=== PATIENT | male | born 1965 | race Caucasian/White ===

== ENCOUNTER 2023-05-11 22:39 | Inpatient (IN) | payer OTHER ==
[2023-05-11 23:15] VITALS: BMI 27.2
[2023-05-11] MEDS ORDERED: LOPERAMIDE HCL 2 MG CAPSULE PO PRN (23:57)
[2023-05-11] MEDS ORDERED: MAGNESIUM HYDROX 2400MG/30ML ORAL SUSPENSION 30 ML CUP PO PRN (23:57)
[2023-05-11] MEDS ORDERED: guaiFENesin 600 MG TABLET.ER (FP) PO PRN (23:57)
[2023-05-11] MEDS ORDERED: BENZONATATE 200 MG CAPSULE PO PRN (23:57)
[2023-05-11] MEDS ORDERED: POLYETHYLENE GLYCOL (HEALTHYLAX) 3350 17 GM PACKET PO PRN (23:57)
[2023-05-11] MEDS ORDERED: DICYCLOMINE HCL 10 MG CAPSULE PO PRN (23:57)
[2023-05-11] MEDS ORDERED: NALOXONE HCL 0.4 MG/ML VIAL IM PRN (23:57)
[2023-05-11] MEDS ORDERED: BISMUTH SUBSALICYLATE 524 MG/30 ML PO PRN (23:57)
[2023-05-11] MEDS ORDERED: IBUPROFEN 600 MG TABLET (FP) PO PRN (23:57)
[2023-05-11] MEDS ORDERED: ONDANSETRON *ODT* 4 MG TABLET SL PRN (23:57)
[2023-05-11] MEDS ORDERED: NALOXONE HCL (KLOXXADO) 8 MG SPRAY NS PRN (23:57)
[2023-05-11] MEDS ORDERED: IBUPROFEN 400 MG TABLET (FP) PO PRN (23:57)
[2023-05-11] MEDS ORDERED: NICOTINE POLACRILEX 2 MG GUM BUC PRN (23:57)
[2023-05-11] MEDS ORDERED: BENZOCAINE/MENTHOL (CHLORASEPTIC ) LOZENGE MM PRN (23:57)
[2023-05-11] MEDS ORDERED: ACETAMINOPHEN 325 MG TABLET (FP) PO PRN (23:57)
[2023-05-11] MEDS ORDERED: MAG HYDROX/AL HYDROX/SIMETH 30 ML UNIT-DOSE CUP PO PRN (23:57)
[2023-05-11] MEDS ORDERED: METHOCARBAMOL 500 MG TABLET PO PRN (23:57)
[2023-05-12] MEDS ORDERED: ALBUTEROL SO4 2.5/IPRATROPIUM 0.5 INH SOL 3 ML VIAL.NEB. NEB ONE (08:30)
[2023-05-12] MEDS ORDERED: predniSONE 20 MG TABLET (UD) PO ONE (08:45)
[2023-05-12] MEDS ORDERED: LORazepam 1 MG TABLET PO PRN (08:57)
[2023-05-12 09:26] VITALS: BP 119/68; PULSE 104; RESP 18; TEMP 97.8
[2023-05-12] MEDS ORDERED: PRENATAL VITAMINS W/ FOLIC ACID TABLET (FP) PO SCH (10:00)
[2023-05-12] MEDS ORDERED: NICOTINE 21 MG/24 HOURS TOPICAL PATCH TD SCH (10:00)
[2023-05-12] MEDS ORDERED: LORazepam 2 MG TABLET PO SCH (11:00)
[2023-05-12 11:01] LABS: HEMATOCRIT 39.5 % (35.4-49); HEMOGLOBIN 13.1 GM/dL (11.7-16.9); MCH 35.1 pg (25.7-33.7); MCHC 33.1 g/dl (32.0-35.9); MEAN PLT VOLUME 7.5 fl (7.5-11.1); PLATELET COUNT 185 10^3/uL (134-434); RBC 3.73 M/mm3 (4.00-5.60); RDW 15.1 % (11.9-15.9); WHITE BLOOD COUNT 4.8 K/mm3 (4.0-10.0)
[2023-05-12 11:08] LABS: CALCIUM 7.3 mg/dL (8.5-10.1)
[2023-05-12 11:09] LABS: ALBUMIN 2.9 g/dl (3.4-5.0); BLOOD UREA NITROGEN 5.6 mg/dL (7-18)
[2023-05-12 11:11] LABS: CREATININE 0.5 mg/dL (0.55-1.3)
[2023-05-12 11:13] LABS: BILIRUBIN,TOTAL 0.3 mg/dL (0.2-1); TOT PROT 5.6 g/dl (6.4-8.2)
[2023-05-12] MEDS ORDERED: ALBUTEROL SO4 2.5/IPRATROPIUM 0.5 INH SOL 3 ML VIAL.NEB. NEB SCH (20:00)
[2023-05-12] MEDS ORDERED: THIAMINE HCL 100 MG TABLET (FP) PO SCH (22:00)
[2023-05-12] MEDS ORDERED: MELATONIN 5 MG TABLETS PO SCH (22:00)
[2023-05-12] MEDS ORDERED: ATORVASTATIN CA 20 MG TABLET (FP) PO SCH (22:00)
[2023-05-13] MEDS ORDERED: predniSONE 20 MG TABLET (UD) PO SCH (10:00)
[2023-05-14] MEDS ORDERED: LORazepam 1 MG TABLET PO SCH (05:00)
[2023-05-15] MEDS ORDERED: LORazepam 0.5 MG TABLET PO PRN
[2023-05-15] MEDS ORDERED: LORazepam 0.5 MG TABLET PO SCH (05:00)
[2023-05-16] MEDS ORDERED: LORazepam 0.5 MG TABLET PO ONE (05:00)
== END 2023-05-12 16:07 | disposition left against medical advice (07) | DRG 894 ==
LOC: YASAS 22:39 → Y3N 23:46
PROVIDERS: ADMIT Allergy & Immunology; ATTEND Surgery
PROC: HZ2ZZZZ Detoxification Services for Substance Abuse Treatment (ICD-10-PCS; principal; 2023-05-11)
DX: F10.230 Alcohol dependence with withdrawal, uncomplicated (principal); C18.9 Malignant neoplasm of colon, unspecified; C78.00 Secondary malignant neoplasm of unspecified lung; F17.210 Nicotine dependence, cigarettes, uncomplicated; E78.5 Hyperlipidemia, unspecified; J44.9 Chronic obstructive pulmonary disease, unspecified
CPT/HCPCS: 36415; 80053; 85027; 86780; 87635; 94640

== ENCOUNTER 2023-05-12 12:12 | Emergency (ER) | payer OTHER ==
[2023-05-12 13:00] VITALS: BP 133/83; PULSE 92; RESP 18; TEMP 99; BMI 25.8
[2023-05-12 14:30] LABS: BASO % 0.6 % (0-2.0); EOS % 0.5 % (0-4.5); HEMATOCRIT 41.2 % (35.4-49); HEMOGLOBIN 13.7 GM/dL (11.7-16.9); LYMPH % 9.5 % (8-40); MCH 34.9 pg (25.7-33.7); MCHC 33.2 g/dl (32.0-35.9); MEAN CELL VOLUME 104.9 fl (80-96); MEAN PLT VOLUME 7.7 fl (7.5-11.1); MONO % 7.4 % (3.8-10.2); PLATELET COUNT 195 10^3/uL (134-434); RBC 3.93 M/mm3 (4.00-5.60); RDW 15.3 % (11.9-15.9); WHITE BLOOD COUNT 7.4 K/mm3 (4.0-10.0)
[2023-05-12] MEDS ORDERED: LORazepam 2 MG/ML SDV VIAL IVPUSH ONE (14:36)
[2023-05-12 14:58] LABS: POTASSIUM 4.4 mmol/L (3.5-5.1)
[2023-05-12 15:02] LABS: BLOOD UREA NITROGEN 7.2 mg/dL (7-18)
[2023-05-12 15:05] LABS: CREATININE 0.6 mg/dL (0.55-1.3)
[2023-05-12 15:07] LABS: BILIRUBIN,TOTAL 0.4 mg/dL (0.2-1); TOT PROT 6.9 g/dl (6.4-8.2)
[2023-05-12 15:08] LABS: ALBUMIN 3.5 g/dl (3.4-5.0); CALCIUM 8.4 mg/dL (8.5-10.1)
== END 2023-05-12 16:29 | disposition left against medical advice (07) ==
LOC: JER 12:12
PROC: 3E033GC Introduction of Other Therapeutic Substance into Peripheral Vein, Percutaneous Approach (ICD-10-PCS; principal; 2023-05-12)
DX: F10.239 Alcohol dependence with withdrawal, unspecified (principal)
CPT/HCPCS: 0241U-QW; 36415; 71045-TC-FY; 71275-TC; 80053; 84484; 85025; 99285-25; Q9967